=== PATIENT | male | born 1990 | race Hispanic/Latino ===

== ENCOUNTER 2018-11-11 23:03 | Emergency (ER) | payer SELFPAY ==
[2018-11-12 02:29] LABS: Absolute Lymphocytes (CBC) 1.1 K/uL (0.7-4.9); Absolute Monocytes 0.6 K/uL (0.1-1.3); Absolute Neutrophil 6.8 K/uL (1.8-8.0); Basophils % 0.3 % (0-1.3); Eosinophils % 0.3 % (0-4.4); Hematocrit 45.5 % (39.6-49.0); Lymphocytes % 12.7 % (15.3-44.8); MPV 9.3 fL (7.6-11.3); Monocytes % 6.6 % (3.3-12.3); RBC Red Blood Cell Count 5.37 M/uL (4.33-5.43)
[2018-11-12 02:43] LABS: ALT/SGPT 43 U/L (12-78); AST/SGOT 22 U/L (15-37); Albumin 4.1 g/dL (3.4-5.0); Alkaline Phosphatase 76 U/L (45-117); BUN Blood Urea Nitrogen 11 mg/dL (7-18); Bicarbonate 26 mmol/L (21-32); Bilirubin Direct 0.1 mg/dL (0-0.2); Bilirubin Total 0.5 mg/dL (0.2-1.0); Glucose Level 111 mg/dL (74-106); Lipase 61 U/L (73-393); Potassium 3.3 mmol/L (3.5-5.1); Protein, Total 7.7 g/dL (6.4-8.2); Sodium Level 139 mmol/L (136-145)
[2018-11-12] MEDS ORDERED: FAMOTIDINE 20 MG/2 ML VIAL IV ONE (02:57)
[2018-11-12] MEDS ORDERED: ONDANSETRON 4 MG/2 ML VIAL ONE (02:57)
[2018-11-12] MEDS ORDERED: KETOROLAC 30 MG/ML INJ ONE (02:57)
--- NOTE | 2018-11-12 03:55 | EDPHYS ---
Physician Documentation [facility] Name: Mathieu Zhou Age: 28 yrs Sex: Male : 1990 Arrival Date: 11/11/2018 Time: 23:07 Bed 19 Private MD: ED Physician Car Owens HPI: 11/12 07:08 This 28 yrs old Male presents to ER via Ambulatory with complaints of Fever, wa Vomiting/Diarrhea. 07:08 The patient reports fever, not measured (subjective). Onset: The symptoms/episode wa began/occurred yesterday. Modifying factors: there are no obvious modifying factors. Associated signs and symptoms: Pertinent positives: abdominal pain, decreased appetite, diarrhea, nausea, vomiting, Pertinent negatives: cough, pulling at ears, runny nose, shortness of breath. Severity of symptoms: At their worst the symptoms were moderate in the emergency department the symptoms are unchanged. The patient has not experienced similar symptoms in the past. The patient has not recently seen a physician. girlfriend has similar symptoms. Historical: - Allergies: 11/11 23:27 No Known Allergies; fc - Home Meds: 23:27 None [Active]; fc - PMHx: 23:27 None; fc - PSHx: 23:27 Left lower leg surg; fc - Immunization history:: Last tetanus immunization: unknown. - Social history:: Smoking status: Patient uses tobacco products, smokes one-half pack cigarettes per day, Patient uses alcohol, weekends only. Patient/guardian denies using street drugs. - Ebola Screening: : Patient negative for fever greater than or equal to 101.5 degrees Fahrenheit, and additional compatible Ebola Virus Disease symptoms Patient denies exposure to infectious person Patient denies travel to an Ebola-affected area in the 21 days before illness onset. - Family history:: not pertinent. - Hospitalizations: : No recent hospitalization is reported. ROS: 11/12 07:13 Eyes: Negative for injury, pain, redness, and discharge, ENT: Negative for injury, wa pain, and discharge, Neck: Negative for injury, pain, and swelling, Cardiovascular: Negative for chest pain, palpitations, and edema, Respiratory: Negative for shortness of breath, cough, wheezing, and pleuritic chest pain, Back: Negative for injury and pain, MS/Extremity: Negative for injury and deformity, Skin: Negative for injury, rash, and discoloration, Neuro: Negative for headache, weakness, numbness, tingling, and seizure, Psych: Negative for depression, anxiety, suicide ideation, homicidal ideation, and hallucinations. Constitutional: Positive for fever. Abdomen/GI: Positive for abdominal pain, nausea, vomiting, diarrhea. Exam: 07:13 Head/Face: Normocephalic, atraumatic. Eyes: Pupils equal round and reactive to light, wa extra-ocular motions intact. Lids and lashes normal. Conjunctiva and sclera are non-icteric and not injected. Cornea within normal limits. Periorbital areas with no swelling, redness, or edema. ENT: Nares patent. No nasal discharge, no septal abnormalities noted. Tympanic membranes are normal and external auditory canals are clear. Oropharynx with no redness, swelling, or masses, exudates, or evidence of obstruction, uvula midline. Mucous membranes moist. Neck: Trachea midline, no thyromegaly or masses palpated, and no cervical lymphadenopathy. Supple, full range of motion without nuchal rigidity, or vertebral point tenderness. No Meningismus. Chest/axilla: Normal chest wall appearance and motion. Nontender with no deformity. No lesions are appreciated. Cardiovascular: Regular rate and rhythm with a normal S1 and S2. No gallops, murmurs, or rubs. Normal PMI, no JVD. No pulse deficits. Respiratory: Lungs have equal breath sounds bilaterally, clear to auscultation and percussion. No rales, rhonchi or wheezes noted. No increased work of breathing, no retractions or nasal flaring. Back: No spinal tenderness. No costovertebral tenderness. Full range of motion. Skin: Warm, dry with normal turgor. Normal color with no rashes, no lesions, and no evidence of cellulitis. MS/ Extremity: Pulses equal, no cyanosis. Neurovascular intact. Full, normal range of motion. Neuro: Awake and alert, GCS 15, oriented to person, place, time, and situation. Cranial nerves II-XII grossly intact. Motor strength 5/5 in all extremities. Sensory grossly intact. Cerebellar exam normal. Normal gait. Psych: Awake, alert, with orientation to person, place and time. Behavior, mood, and affect are within normal limits. 07:13 Constitutional: The patient appears in no acute distress, alert, febrile. 07:13 Abdomen/GI: Inspection: abdomen appears normal, Bowel sounds: normal, in all quadrants, Palpation: soft, in all quadrants, mild abdominal tenderness, in the diffusely. Vital Signs: 11/11 23:27 BP 139 / 90; Pulse 101; Resp 18; Temp 99.6; Pulse Ox 96% ; Weight 127.01 kg; Height 5 fc ft. 8 in. (172.72 cm); Pain 0/10; 11/12 00:45 BP 141 / 79; Pulse 93; Resp 19; Temp 99.2(TE); Pulse Ox 100% on R/A; Pain 0/10; ed1 01:33 BP 138 / 79; Pulse 91; Resp 19; Temp 99.0(TE); Pulse Ox 100% on R/A; Pain 0/10; ed1 02:55 BP 138 / 74; Pulse 83; Resp 19; Temp 99.1(O); Pulse Ox 100% on R/A; Pain 0/10; ed1 04:38 BP 126 / 81; Pulse 79; Resp 19; Temp 98.3(O); Pulse Ox 99% on R/A; Pain 0/10; ed1 11/11 23:27 Body Mass Index 42.57 (127.01 kg, 172.72 cm) fc MDM: 00:10 Patient medically screened. tx 07:21 Differential diagnosis: viral Infection, bacterial infection, UTI. Data reviewed: vital tx signs, nurses notes. 07:21 Test interpretation: by ED physician or midlevel provider: maryann Kam. Response to tx treatment: the patient's symptoms have markedly improved after treatment. 07:24 ED course: improved. . tx 11/12 01:59 Order name: Basic Metabolic Panel; Complete Time: 03:13 tx 11/12 01:59 Order name: CBC with Diff; Complete Time: 03:13 tx 11/12 01:59 Order name: Hepatic Function; Complete Time: 03:14 tx 11/12 01:59 Order name: Lipase; Complete Time: 03:14 tx 11/12 01:59 Order name: IV Saline Lock; Complete Time: 02:15 tx 11/12 01:59 Order name: Labs collected and sent; Complete Time: 02:15 tx Administered Medications: 02:54 Drug: Zofran 4 mg Route: IVP; Site: right antecubital; ed1 03:54 Follow up: Response: No adverse reaction; Nausea is decreased ed1 02:54 Drug: Pepcid 20 mg Route: IVP; Site: right antecubital; ed1 03:54 Follow up: Response: No adverse reaction ed1 02:54 Drug: TORadol 30 mg Route: IVP; Site: right antecubital; ed1 03:55 Follow up: Response: No adverse reaction; Nausea is decreased ed1 03:54 Drug: Potassium Effervescent Tablet 50 mEq Route: PO; ed1 04:38 Follow up: Response: No adverse reaction ed1 03:55 Drug: NS 0.9% 1000 ml Route: IV; Rate: 1000 ml; Site: right antecubital; ed1 04:37 Follow up: Response: No adverse reaction; IV Status: Completed infusion; IV Intake: ed1 1000ml Disposition: 11/12/18 03:53 Discharged to Home. Impression: Diarrhea, vomiting, abdominal pain. - Condition is Stable. - Discharge Instructions: Abdominal Pain, Adult, [id number], Diarrhea, Adult, [id number], Vomiting, Adult. - Prescriptions for Zofran 4 mg Oral Tablet - take 1 tablet by ORAL route every 12 hours As needed; 20 tablet. Pepcid 20 mg Oral Tablet - take 1 tablet by ORAL route once daily for 10 days; 10 tablet. - Medication Reconciliation Form, Thank You Letter, Antibiotic Education, Prescription Opioid Use form. - Follow up: Car Dominguez MD; When: 2 - 3 days; Reason: Recheck today's complaints. - Problem is new. - Symptoms have improved. Signatures: Dispatcher [employer] EDMS Francie Pedersen RN RN Emeli Bullard RN RN ed1 Car Owens MD MD wa Corrections: (The following items were deleted from the chart) 04:39 03:53 11/12/2018 03:53 Discharged to Home. Impression: Diarrhea; vomiting; abdominal ed1 pain. Condition is Stable. Forms are Medication Reconciliation Form, Thank You Letter, Antibiotic Education, Prescription Opioid Use. Follow up: Car Dominguez; When: 2 - 3 days; Reason: Recheck today's complaints. Problem is new. Symptoms have improved. wa
--- NOTE | 2018-11-12 03:55 | ER ---
Nurse's Notes [facility] Name: Mathieu Zhou Age: 28 yrs Sex: Male : 1990 Arrival Date: 11/11/2018 Time: 23:07 Bed 19 Private MD: Diagnosis: Diarrhea;vomiting;abdominal pain Presentation: 11/11 23:24 Presenting complaint: Patient states: this am he started to have fever, diarrhea and fc vomiting. Has has over 10 episodes of diarrhea and vomiting. Also occ. abd cramping but no constant pain. Transition of care: patient was not received from another setting of care. Onset of symptoms was November 11, 2018 at 06:30. Risk Assessment: Do you want to hurt yourself or someone else? Patient reports no desire to harm self or others. Initial Sepsis Screen: Does the patient meet any 2 criteria? HR > 90 bpm. Yes Does the patient have a suspected source of infection? No. Patient's initial sepsis screen is negative. Care prior to arrival: Medication(s) given: Pepto and amoxicillin. 23:24 Method Of Arrival: Ambulatory 23:24 Acuity: ELOINA 3 Triage Assessment: 23:27 General: Appears comfortable, obese, Behavior is calm, cooperative, appropriate for age. Pain: Complains of pain in abdomen Pain currently is 0 out of 10 on a pain scale. at worst was 6 out of 10 on a pain scale. Quality of pain is described as crampy, Pain began today Is continuous. EENT: No deficits noted. Neuro: Level of Consciousness is awake, alert, obeys commands, Oriented to person, place, time, situation, Appropriate for age. Cardiovascular: No deficits noted. Respiratory: No deficits noted. GI: Abdomen is round Bowel sounds present X 4 quads. Abd is soft and non tender Reports cramping, diarrhea, nausea, vomiting. : No deficits noted. Derm: Skin is pink, warm \T\ dry. Musculoskeletal: Circulation, motion, and sensation intact. Capillary refill < 3 seconds, Range of motion: intact in all extremities. Historical: - Allergies: 23:27 No Known Allergies; fc - Home Meds: 23:27 None [Active]; fc - PMHx: 23:27 None; fc - PSHx: 23:27 Left lower leg surg; fc - Immunization history:: Last tetanus immunization: unknown. - Social history:: Smoking status: Patient uses tobacco products, smokes one-half pack cigarettes per day, Patient uses alcohol, weekends only. Patient/guardian denies using street drugs. - Ebola Screening: : Patient negative for fever greater than or equal to 101.5 degrees Fahrenheit, and additional compatible Ebola Virus Disease symptoms Patient denies exposure to infectious person Patient denies travel to an Ebola-affected area in the 21 days before illness onset. - Family history:: not pertinent. - Hospitalizations: : No recent hospitalization is reported. Screenin:45 Abuse screen: Denies threats or abuse. Denies injuries from another. Nutritional ed1 screening: No deficits noted. Tuberculosis screening: No symptoms or risk factors identified. Fall Risk None identified. Assessment: 23:45 General: Appears in no apparent distress. Behavior is calm, cooperative. Pain: ed1 Complains of pain in abdomen Pain at worst was 6 out of 10 on a pain scale. Quality of pain is described as crampy, Is intermittent, episodic. Neuro: Level of Consciousness is awake, alert, obeys commands, Oriented to person, place, time, situation. Cardiovascular: Denies chest pain, Heart tones S1 S2 present. Respiratory: Airway is patent Respiratory effort is even, unlabored, Respiratory pattern is regular, symmetrical, Breath sounds are clear bilaterally. GI: Abdomen is non-distended, Bowel sounds present X 4 quads. Abd is soft and non tender X 4 quads. Reports cramping, diarrhea, nausea, vomiting. : No signs and/or symptoms were reported regarding the genitourinary system. EENT: Oral mucosa is moist. Derm: Skin is intact, is healthy with good turgor, Skin is dry, Skin is normal, Skin temperature is warm. Musculoskeletal: Circulation, motion, and sensation intact. Range of motion: intact in all extremities. 11/12 00:45 Reassessment: Patient appears in no apparent distress at this time. No changes from ed1 previously documented assessment. Patient and/or family updated on plan of care and expected duration. Pain level reassessed. Patient is alert, oriented x 3, equal unlabored respirations, skin warm/dry/pink. Patient states symptoms have not improved. 01:33 Reassessment: Patient appears in no apparent distress at this time. No changes from ed1 previously documented assessment. Patient and/or family updated on plan of care and expected duration. Pain level reassessed. Patient is alert, oriented x 3, equal unlabored respirations, skin warm/dry/pink. Patient states symptoms have not improved. 02:55 Reassessment: Patient appears in no apparent distress at this time. No changes from ed1 previously documented assessment. Patient and/or family updated on plan of care and expected duration. Pain level reassessed. Patient is alert, oriented x 3, equal unlabored respirations, skin warm/dry/pink. Patient states symptoms have not improved. 04:38 Reassessment: Patient appears in no apparent distress at this time. Patient and/or ed1 family updated on plan of care and expected duration. Pain level reassessed. Patient is alert, oriented x 3, equal unlabored respirations, skin warm/dry/pink. Patient denies pain at this time. Patient states feeling better. Patient states symptoms have improved. Vital Signs: 11/11 23:27 BP 139 / 90; Pulse 101; Resp 18; Temp 99.6; Pulse Ox 96% ; Weight 127.01 kg; Height 5 fc ft. 8 in. (172.72 cm); Pain 0/10; 11/12 00:45 BP 141 / 79; Pulse 93; Resp 19; Temp 99.2(TE); Pulse Ox 100% on R/A; Pain 0/10; ed1 01:33 BP 138 / 79; Pulse 91; Resp 19; Temp 99.0(TE); Pulse Ox 100% on R/A; Pain 0/10; ed1 02:55 BP 138 / 74; Pulse 83; Resp 19; Temp 99.1(O); Pulse Ox 100% on R/A; Pain 0/10; ed1 04:38 BP 126 / 81; Pulse 79; Resp 19; Temp 98.3(O); Pulse Ox 99% on R/A; Pain 0/10; ed1 11/11 23:27 Body Mass Index 42.57 (127.01 kg, 172.72 cm) ED Course: 11/11 23:07 Patient arrived in ED. am2 23:26 Triage completed. 23:27 Arm band placed on Patient placed in an exam room, on a stretcher. 23:45 Awaiting ED provider evaluation. ed1 23:45 Patient has correct armband on for positive identification. Bed in low position. Call ed1 light in reach. Pt refuses to wear gown. 23:46 Emeli Bullard, ZEESHAN is Primary Nurse. ed1 05 00:10 Car Owens MD is Attending Physician. 00:45 Resting quietly. Awaiting ED provider evaluation. ed1 01:33 Resting quietly. Awaiting ED provider evaluation. ed1 02:14 Initial lab(s) drawn, by ED staff, sent to lab. Inserted saline lock: 20 gauge in right ed1 antecubital area, using aseptic technique. Blood collected. 03:53 Car Dominguez MD is Referral Physician. 04:38 No provider procedures requiring assistance completed. IV discontinued, intact, ed1 bleeding controlled, No redness/swelling at site. Pressure dressing applied. Administered Medications: 02:54 Drug: Zofran 4 mg Route: IVP; Site: right antecubital; ed1 03:54 Follow up: Response: No adverse reaction; Nausea is decreased ed1 02:54 Drug: Pepcid 20 mg Route: IVP; Site: right antecubital; ed1 03:54 Follow up: Response: No adverse reaction ed1 02:54 Drug: TORadol 30 mg Route: IVP; Site: right antecubital; ed1 03:55 Follow up: Response: No adverse reaction; Nausea is decreased ed1 03:54 Drug: Potassium Effervescent Tablet 50 mEq Route: PO; ed1 04:38 Follow up: Response: No adverse reaction ed1 03:55 Drug: NS 0.9% 1000 ml Route: IV; Rate: 1000 ml; Site: right antecubital; ed1 04:37 Follow up: Response: No adverse reaction; IV Status: Completed infusion; IV Intake: ed1 1000ml Intake: 04:37 IV: 1000ml; Total: 1000ml. ed1 Outcome: 03:53 Discharge ordered by . 04:38 Discharged to home ambulatory, with significant other. ed1 04:38 Condition: good 04:38 Discharge instructions given to patient, Instructed on discharge instructions, follow up and referral plans. medication usage, Demonstrated understanding of instructions, follow-up care, medications, Prescriptions given X 2. 04:39 Patient left the ED. ed1 Signatures: Francie Pedersen RN RN Emeli Bullard RN RN ed1 Yenny Bar am2 Car Owens MD MD wa
[2018-11-12] MEDS ORDERED: NA CHLORIDE 0.9% 1,000 ML ONE (04:04)
[2018-11-12] MEDS ORDERED: POTASSIUM 25 MEQ EFFERV TAB ONE (04:04)
[2018-11-12 11:12] VITALS: BP 126/81; TEMP 98.3; O2SAT 99
== END 2018-11-12 04:39 | disposition home or self-care (01) ==
LOC: ER 23:03
DX: R10.9 Unspecified abdominal pain (principal); R19.7 Diarrhea, unspecified; R11.10 Vomiting, unspecified; F17.210 Nicotine dependence, cigarettes, uncomplicated
CPT/HCPCS: 36415; 80048; 80076; 83690; 85025; 96361; 96374; 96375; 99284; J2405; J7030

== ENCOUNTER 2020-05-09 10:24 | Emergency (ER) | payer SELFPAY ==
--- NOTE | 2020-05-09 12:48 | ER ---
Nurse's Notes [facility] Name: Mathieu Zhou Age: 29 yrs Sex: Male : 1990 Arrival Date: 05/09/2020 Time: 10:25 Bed 13 Private MD: Diagnosis: Acute bronchitis Presentation: 05/09 10:43 Chief complaint: Patient states: Productive cough x 3 days. Nasal congestion, headache, ca1 sore throat and fever yesterday. Coronavirus screen: Client denies travel out of the [place] in the last 14 days. congestion, cough unrelated to allergies, runny nose, loss of taste or smell, Client presents with at least one sign or symptom that may indicate coronavirus-19. Standard/surgical mask placed on the client. Provider contacted for isolation considerations. The client denies any previous COVID testing. Ebola Screen: Patient negative for fever greater than or equal to 101.5 degrees Fahrenheit, and additional compatible Ebola Virus Disease symptoms Patient denies exposure to infectious person. Patient denies travel to an Ebola-affected area in the 21 days before illness onset. No symptoms or risks identified at this time. Initial Sepsis Screen: Does the patient meet any 2 criteria? No. Patient's initial sepsis screen is negative. Does the patient have a suspected source of infection? No. Patient's initial sepsis screen is negative. Risk Assessment: Do you want to hurt yourself or someone else? Patient reports no desire to harm self or others. Onset of symptoms was May 09, 2020. 10:43 Method Of Arrival: Ambulatory ca1 10:43 Acuity: ELOINA 3 ca1 Historical: - Allergies: 10:45 No Known Allergies; ca1 - Home Meds: 10:45 None [Active]; ca1 - PMHx: 10:45 None; ca1 - PSHx: 10:46 Left lower leg surg; ca1 - Immunization history:: Adult Immunizations up to date, Flu vaccine is not up to date. - Social history:: Smoking status: Patient reports the use of cigarette tobacco products, smokes one-half pack cigarettes per day. Screenin:36 Abuse screen: Denies threats or abuse. Nutritional screening: No deficits noted. tw2 Tuberculosis screening: No symptoms or risk factors identified. Fall Risk None identified. Assessment: 12:12 General: Appears in no apparent distress. obese, well groomed, Behavior is calm, tw2 cooperative, appropriate for age. Pain: Complains of pain in uvula, left aspect of posterior pharynx and right aspect of posterior pharynx. Neuro: Level of Consciousness is awake, alert, obeys commands, Oriented to person, place, time, situation. Cardiovascular: Heart tones S1 S2 Patient's skin is warm and dry. Respiratory: Reports cough that is non-productive, dry, Airway is patent Respiratory effort is even, unlabored, Respiratory pattern is regular, symmetrical, Breath sounds are clear bilaterally. GI: Abdomen is round non-distended, Bowel sounds present X 4 quads. : No signs and/or symptoms were reported regarding the genitourinary system. EENT: Reports nasal congestion nasal discharge. Musculoskeletal: No signs and/or symptoms reported regarding the musculoskeletal system. Range of motion: intact in all extremities. 12:36 Reassessment: xray at bedside at this time. tw2 12:41 Reassessment: Patient appears in no apparent distress at this time. No changes from tw2 previously documented assessment. Patient and/or family updated on plan of care and expected duration. Pain level reassessed. Patient is alert, oriented x 3, equal unlabored respirations, skin warm/dry/pink. 13:02 Reassessment: Patient appears in no apparent distress at this time. No changes from tw2 previously documented assessment. Patient and/or family updated on plan of care and expected duration. Pain level reassessed. Patient is alert, oriented x 3, equal unlabored respirations, skin warm/dry/pink. Vital Signs: 10:43 BP 132 / 95; Pulse 61; Resp 16 S; Temp 97(TE); Pulse Ox 98% on R/A; Weight 127.01 kg ca1 (R); Height 5 ft. 8 in. (172.72 cm) (R); 12:40 BP 111 / 62; Pulse 88; Resp 17; Pulse Ox 100% on R/A; tw2 10:43 Body Mass Index 42.57 (127.01 kg, 172.72 cm) ca1 ED Course: 10:25 Patient arrived in ED. ag5 10:36 Joc[facility] Gallegos F[facility]-C [facility]. snw 10:36 Pieter Beckford MD is Attending Physician. snw 10:45 Triage completed. ca1 10:46 Arm band placed on right wrist. ca1 10:50 Flu and/or RSV swab sent to lab. Strep swab sent to lab. ca1 12:12 Bed in low position. Call light in reach. equipment monitor phototypesetting on. Pulse ox on. NIBP on. tw2 12:36 Halima Kc, RN is Primary Nurse. tw2 12:55 Chest Single View XRAY In Process Unspecified. EDMS 13:01 No provider procedures requiring assistance completed. Patient did not have IV access tw2 during this emergency room visit. Administered Medications: 12:55 Drug: Zithromax 500 mg Route: PO; tw2 13:01 Follow up: Response: No adverse reaction tw2 12:55 Drug: predniSONE 40 mg Route: PO; tw2 13:01 Follow up: Response: No adverse reaction tw2 12:55 Drug: Pepcid 20 mg Route: PO; tw2 13: Follow up: Response: No adverse reaction tw2 Outcome: 12:48 Discharge ordered by MD. snw 13:01 Discharged to home ambulatory, with significant other. tw2 13:01 Condition: stable 13:01 Discharge instructions given to patient, significant other, Instructed on discharge instructions, follow up and referral plans. medication usage, Demonstrated understanding of instructions, follow-up care, medications, Prescriptions given X 5 13:02 Patient left the ED. tw2 Addendum: 05/11/2020 12:31 Addendum: COVID-19 Result: Negative result given to RN to notify pt. Contacted by: Carmen Solorzano. Notified pt of negative COVID 19 swab results. Pt advised that even with a negative test result they should remain in isolation until symptom free for 3 days without medication. Pt also advised to return to the ED for worsening symptoms. Signatures: Dispatcher [employer] EDNC Loretta Solorzano, RN Jocelin Colón, [employer]-C [employer]-Csnw Halima Kc RN RN tw2 Carin Turner RN RN ca1 Rainer Limon 5
--- NOTE | 2020-05-09 12:49 | EDPHYS ---
Physician Documentation [facility] Name: Mathieu Zhou Age: 29 yrs Sex: Male : 1990 Arrival Date: 05/09/2020 Time: 10:25 Bed 13 Private MD: SASHA Physician Pieter Beckford HPI: 05/09 15:47 This 29 yrs old Male presents to ER via Ambulatory with complaints of Cough. snw 15:47 The patient or guardian reports cough, described as moderate, difficulty breathing, flu snw symptoms, low-grade fever, myalgias. Onset: The symptoms/episode began/occurred suddenly, 3 day(s) ago, and became persistent. Severity of symptoms: At their worst the symptoms were moderate. Associated signs and symptoms: The patient has no apparent associated signs or symptoms. The patient has not experienced similar symptoms in the past. The patient has not recently seen a physician. Historical: - Allergies: 10:45 No Known Allergies; ca1 - Home Meds: 10:45 None [Active]; ca1 - PMHx: 10:45 None; ca1 - PSHx: 10:46 Left lower leg surg; ca1 - Immunization history:: Adult Immunizations up to date, Flu vaccine is not up to date. - Social history:: Smoking status: Patient reports the use of cigarette tobacco products, smokes one-half pack cigarettes per day. ROS: 15:46 Constitutional: Negative for fever, chills, and weight loss, Eyes: Negative for injury, snw pain, redness, and discharge, ENT: Negative for injury, pain, and discharge, + congestion Neck: Negative for injury, pain, and swelling, Cardiovascular: Negative for chest pain, palpitations, and edema. 15:46 Abdomen/GI: Negative for abdominal pain, nausea, vomiting, diarrhea, and constipation, Back: Negative for injury and pain, : Negative for injury, bleeding, discharge, and swelling, MS/Extremity: Negative for injury and deformity, Skin: Negative for injury, rash, and discoloration, Neuro: Negative for headache, weakness, numbness, tingling, and seizure, Psych: Negative for depression, anxiety, suicide ideation, homicidal ideation, and hallucinations. 15:46 Respiratory: Positive for cough, shortness of breath, coughing up yellow, thick, phlegm. Exam: 15:45 Constitutional: This is a well developed, well nourished patient who is awake, alert, snw and in no acute distress. Head/Face: Normocephalic, atraumatic. Eyes: Pupils equal round and reactive to light, extra-ocular motions intact. Lids and lashes normal. Conjunctiva and sclera are non-icteric and not injected. Cornea within normal limits. Periorbital areas with no swelling, redness, or edema. ENT: Nares patent. No nasal discharge, no septal abnormalities noted. Tympanic membranes are normal and external auditory canals are clear. Oropharynx with no redness, swelling, or masses, exudates, or evidence of obstruction, uvula midline. Mucous membranes moist. Neck: Trachea midline, no thyromegaly or masses palpated, and no cervical lymphadenopathy. Supple, full range of motion without nuchal rigidity, or vertebral point tenderness. No Meningismus. Chest/axilla: Normal chest wall appearance and motion. Nontender with no deformity. No lesions are appreciated. Cardiovascular: Regular rate and rhythm with a normal S1 and S2. No gallops, murmurs, or rubs. Normal PMI, no JVD. No pulse deficits. Abdomen/GI: Soft, non-tender, with normal bowel sounds. No distension or tympany. No guarding or rebound. No evidence of tenderness throughout. Back: No spinal tenderness. No costovertebral tenderness. Full range of motion. Skin: Warm, dry with normal turgor. Normal color with no rashes, no lesions, and no evidence of cellulitis. MS/ Extremity: Pulses equal, no cyanosis. Neurovascular intact. Full, normal range of motion. Neuro: Awake and alert, GCS 15, oriented to person, place, time, and situation. Cranial nerves II-XII grossly intact. Motor strength 5/5 in all extremities. Sensory grossly intact. Cerebellar exam normal. Normal gait. Psych: Awake, alert, with orientation to person, place and time. Behavior, mood, and affect are within normal limits. 15:45 Respiratory: the patient does not display signs of respiratory distress, Respirations: normal, Breath sounds: bronchial sounds, that are moderate, are scattered. Vital Signs: 10:43 BP 132 / 95; Pulse 61; Resp 16 S; Temp 97(TE); Pulse Ox 98% on R/A; Weight 127.01 kg ca1 (R); Height 5 ft. 8 in. (172.72 cm) (R); 12:40 BP 111 / 62; Pulse 88; Resp 17; Pulse Ox 100% on R/A; tw2 10:43 Body Mass Index 42.57 (127.01 kg, 172.72 cm) ca1 MDM: 12:15 Patient medically screened. [facility] 15:45 Data reviewed: vital signs, nurses notes. Data interpreted: Pulse oximetry: on room air snw is 100 %. Interpretation: normal. Counseling: I had a detailed discussion with the patient and/or guardian regarding: the historical points, exam findings, and any diagnostic results supporting the discharge/admit diagnosis, lab results, the need for outpatient follow up, to return to the emergency department if symptoms worsen or persist or if there are any questions or concerns that arise at home. Special discussion: Based on the history and exam findings, there is no indication for further emergent testing or inpatient evaluation. I discussed with the patient/guardian the need to see the primary care provider for further evaluation of the symptoms. 05/09 10:48 Order name: Flu; Complete Time: 11:57 [facility] 05/09 10:48 Order name: Strep; Complete Time: 11:48 [facility] 05/09 10:48 Order name: COVID-19 [facility] 05/09 10:48 Order name: Chest Single View XRAY [facility] 05/09 11:45 Order name: Throat Culture EDMS Administered Medications: 12:55 Drug: Zithromax 500 mg Route: PO; tw2 13:01 Follow up: Response: No adverse reaction tw2 12:55 Drug: predniSONE 40 mg Route: PO; tw2 13:01 Follow up: Response: No adverse reaction tw2 12:55 Drug: Pepcid 20 mg Route: PO; tw2 13:01 Follow up: Response: No adverse reaction tw2 Disposition: 05/10 06:51 Co-signature as Attending Physician, Pieter Beckford MD I agree with the assessment and [facility] plan of care. Disposition: 05/09/20 12:48 Discharged to Home. Impression: Acute bronchitis. - Condition is Stable. - Discharge Instructions: Acute Bronchitis, Adult, Fever, Adult, Cough, Adult, Rehydration, Adult. - Prescriptions for Zyrtec 10 mg Oral Tablet - take 1 tablet by ORAL route once daily As needed; 20 tablet. Prednisone 20 mg Oral Tablet - take 2 tablet by ORAL route once daily for 5 days; 10 tablet. Pepcid 20 mg Oral Tablet - take 1 tablet by ORAL route once daily for 10 days; 10 tablet. Zithromax 500 mg Oral Tablet - take 1 tablet by ORAL route once daily for 5 days; 5 tablet. Albuterol Sulfate 90 mcg/actuation - inhale 1-2 puff by INHALATION route every 4-6 hours; 1 Inhaler. - Medication Reconciliation Form, Thank You Letter, Antibiotic Education, Prescription Opioid Use, Work release form form. - Follow up: Emergency Department; When: As needed; Reason: Worsening of condition. Follow up: Private Physician; When: 2 - 3 days; Reason: Recheck today's complaints, Continuance of care, Re-evaluation by your physician. Signatures: Dispatcher [employer] EDPieter Vasquez MD MD cha Waters, Shelly, SHIFT SUPERVISOR FILM PROCESSING-C SHIFT SUPERVISOR FILM PROCESSING-Csnw Halima Kc RN RN tw2 Carin Turner RN RN ca1 Corrections: (The following items were deleted from the chart) 05/09 13:02 12:48 05/09/2020 12:48 Discharged to Home. Impression: Acute bronchitis. Condition is tw2 Stable. Forms are Work release form, Medication Reconciliation Form, Thank You Letter, Antibiotic Education, Prescription Opioid Use. Follow up: Emergency Department; When: As needed; Reason: Worsening of condition. Follow up: Private Physician; When: 2 - 3 days; Reason: Recheck today's complaints, Continuance of care, Re-evaluation by your physician. snw
[2020-05-09] MEDS ORDERED: predniSONE 20 MG TAB ONE (13:04)
[2020-05-09] MEDS ORDERED: AZITHROMYCIN 250 MG TAB ONE (13:04)
[2020-05-09] MEDS ORDERED: FAMOTIDINE 20 MG TAB ONE (13:04)
--- NOTE | 2020-05-09 13:12 | RAD REPORT ---
EXAM DESCRIPTION: Nestor Single View05/09/2020 12:55 pm CLINICAL HISTORY: cough COMPARISON: 2016 FINDINGS: The lungs appear clear of acute infiltrate. The heart is normal size IMPRESSION: No acute abnormalities displayed
[2020-05-09 14:19] VITALS: TEMP 97
[2020-05-09 14:21] VITALS: BP 111/62; O2SAT 100
== END 2020-05-09 13:02 | disposition home or self-care (01) ==
LOC: ER 10:24
DX: J20.9 Acute bronchitis, unspecified (principal); Z20.828 Contact with and (suspected) exposure to other viral communicable diseases
CPT/HCPCS: 71045; 87070; 87081; 87804; 99284; J7512; U0002

== ENCOUNTER 2020-07-26 09:46 | Emergency (ER) | payer SELFPAY ==
[2011-10-09 23:29] VITALS: BP 124/59
--- NOTE | 2020-07-26 10:58 | EDPHYS ---
Physician Documentation [facility] Name: Mathieu Zhou Age: 30 yrs Sex: Male : 1990 Arrival Date: 07/26/2020 Time: 09:47 Bed 23 Private MD: ED Physician Moises Gupta HPI: 07/26 10:51 This 30 yrs old Male presents to ER via Ambulatory with complaints of Insect cp Bite. 10:51 The patient or guardian complains of pain, that is acute. cp 10:51 The complaints affect the dorsal aspect of right forearm. Context: resulted from cp possible insect bite. Onset: The symptoms/episode began/occurred 2 day(s) ago. 10:51 Treatment prior to arrival includes: no previous treatment. Associated signs and cp symptoms: Pertinent negatives: fever, drainage. Historical: - Allergies: 10:51 No Known Allergies; iw - Home Meds: 10:51 None [Active]; iw - PMHx: 10:51 None; iw ROS: 10:54 Constitutional: Negative for body aches, chills, fever. cp 10:54 Skin: Positive for erythema, swelling, of the right forearm. 10:54 All other systems are negative. Exam: 10:55 Constitutional: The patient appears in no acute distress, alert, awake, non-toxic, well cp developed, well nourished, obese. 10:55 Skin: cellulitis, that is minimal, on the right forearm, mild erythema, mild swelling. Vital Signs: 10:49 BP 146 / 107; Pulse 66; Resp 16; Pulse Ox 98% on R/A; iw MDM: 10:51 Patient medically screened. cp 10:56 Data reviewed: vital signs, nurses notes, and as a result, I will discharge patient. cp 10:56 Counseling: I had a detailed discussion with the patient and/or guardian regarding: the cp historical points, exam findings, and any diagnostic results supporting the discharge/admit diagnosis, to return to the emergency department if symptoms worsen or persist or if there are any questions or concerns that arise at home. Administered Medications: No medications were administered Disposition: 11:15 Chart complete. cp 18:24 Co-signature as Attending Physician, Moises Gupta MD. ma2 Disposition: 07/26/20 10:57 Discharged to Home. Impression: Staphylococcal infection, unspecified site - right forearm. - Condition is Stable. - Discharge Instructions: Staphylococcal Infection. - Prescriptions for Bactroban 2 % Topical Ointment - Apply to affected area 1 application by TOPICAL route every 12 hours; 30 gram. Bactrim DS 800- 160 mg Oral Tablet - take 1 tablet by ORAL route every 12 hours for 10 days; 20 tablet. - Medication Reconciliation Form, Thank You Letter, Antibiotic Education, Prescription Opioid Use form. - Follow up: Private Physician; When: 2 - 3 days; Reason: Worsening of condition. - Problem is new. - Symptoms are unchanged. Signatures: Laura Dunlap RN RN iw Pieter Martinez PA PA cp Moises Gupta MD MD ma2 Corrections: (The following items were deleted from the chart) 11:12 10:57 07/26/2020 10:57 Discharged to Home. Impression: Staphylococcal infection, iw unspecified site - right forearm. Condition is Stable. Forms are Medication Reconciliation Form, Thank You Letter, Antibiotic Education, Prescription Opioid Use. Follow up: Private Physician; When: 2 - 3 days; Reason: Worsening of condition. Problem is new. Symptoms are unchanged. cp
--- NOTE | 2020-07-26 10:58 | ER ---
Nurse's Notes [facility] Name: Mathieu Zhou Age: 30 yrs Sex: Male : 1990 Arrival Date: 07/26/2020 Time: 09:47 Bed 23 Private MD: Diagnosis: Staphylococcal infection, unspecified site-right forearm Presentation: 07/26 10:49 Chief complaint: Patient states: insect bite to right forearm X 2 days. Coronavirus iw screen: At this time, the client does not indicate any symptoms associated with coronavirus-19. Ebola Screen: Patient negative for fever greater than or equal to 101.5 degrees Fahrenheit, and additional compatible Ebola Virus Disease symptoms Patient denies exposure to infectious person. Patient denies travel to an Ebola-affected area in the 21 days before illness onset. No symptoms or risks identified at this time. Initial Sepsis Screen: Does the patient meet any 2 criteria? No. Patient's initial sepsis screen is negative. Does the patient have a suspected source of infection? No. Patient's initial sepsis screen is negative. Risk Assessment: Do you want to hurt yourself or someone else? Patient reports no desire to harm self or others. Onset of symptoms was July 19, 2020. 10:49 Method Of Arrival: Ambulatory iw 10:49 Acuity: ELOINA 4 iw Historical: - Allergies: 10:51 No Known Allergies; iw - Home Meds: 10:51 None [Active]; iw - PMHx: 10:51 None; iw Vital Signs: 10:49 BP 146 / 107; Pulse 66; Resp 16; Pulse Ox 98% on R/A; iw ED Course: 09:47 Patient arrived in ED. ag5 10:44 Laura Dunlap RN is Primary Nurse. iw 10:47 Pieter Martinez PA is PHCP. cp 10:47 Moises Gupta MD is Attending Physician. cp 10:50 Triage completed. iw 10:50 Arm band placed on. iw Administered Medications: No medications were administered Outcome: 10:57 Discharge ordered by . cp 11:12 Patient left the ED. iw Signatures: Laura Dunlap RN RN iw Pieter Martinez PA PA Rainer Klein ag5
== END 2020-07-26 11:12 | disposition home or self-care (01) ==
LOC: ER 09:46
DX: S50.861A Insect bite (nonvenomous) of right forearm, initial encounter (principal); L08.9 Local infection of the skin and subcutaneous tissue, unspecified; B95.8 Unspecified staphylococcus as the cause of diseases classified elsewhere; W57.XXXA Bitten or stung by nonvenomous insect and other nonvenomous arthropods, initial encounter; Y93.89 Activity, other specified; Y92.9 Unspecified place or not applicable
CPT/HCPCS: 99281

== ENCOUNTER 2020-07-29 16:11 | Emergency (ER) | payer SELFPAY ==
[2020-07-29] MEDS ORDERED: LIDOCAINE 1% MPF 30 ML VIAL ONE (16:44)
--- NOTE | 2020-07-29 16:54 | ER ---
Nurse's Notes [facility] Name: Mathieu Zhou Age: 30 yrs Sex: Male : 1990 Arrival Date: 07/29/2020 Time: 16:14 Bed 6 Private MD: Diagnosis: Cutaneous abscess of right upper limb Presentation: 07/29 16:20 Chief complaint: Patient states: he was seen here a few days ago for this abscess and sv sent home with antibiotics. Today he was at work and bumped his right arm where the abscess was at and "it busted open.". Coronavirus screen: Client denies travel out of the [place] in the last 14 days. At this time, the client does not indicate any symptoms associated with coronavirus-19. Ebola Screen: No symptoms or risks identified at this time. Initial Sepsis Screen: Does the patient meet any 2 criteria? No. Patient's initial sepsis screen is negative. Does the patient have a suspected source of infection? Yes: Skin breakdown/wound. Risk Assessment: Do you want to hurt yourself or someone else? Patient reports no desire to harm self or others. Onset of symptoms was July 25, 2020. 16:20 Method Of Arrival: Ambulatory sv 16:20 Acuity: ELOINA 4 sv Triage Assessment: 16:22 General: Appears in no apparent distress. comfortable, well groomed, well developed, sv Behavior is calm, cooperative, appropriate for age. Pain: Complains of pain in right arm. Neuro: Level of Consciousness is awake, alert, obeys commands, Oriented to person, place, time, situation, Moves all extremities. Full function Gait is steady. Respiratory: Airway is patent Respiratory effort is even, unlabored, Respiratory pattern is regular, symmetrical. Derm: Skin is pink, warm \\T\\ dry. Abscess located on palmar aspect of right forearm is quarter sized, is red, is raised, was lanced by patient prior to arrival. Musculoskeletal: Range of motion: intact in all extremities. Historical: - Allergies: 16:22 No Known Allergies; sv - Social history:: Smoking status: . Screenin:17 Abuse screen: Denies threats or abuse. Nutritional screening: No deficits noted. On. hb Tuberculosis screening: No symptoms or risk factors identified. Fall Risk Total Hitchcock Fall Scale indicates No Risk (0-24 pts). Assessment: 16:20 General: Appears in no apparent distress. Behavior is calm, cooperative. Pain: Pain hb currently is 4 out of 10 on a pain scale. Neuro: Level of Consciousness is awake, alert, obeys commands, Oriented to person, place, time, situation. Cardiovascular: Patient's skin is warm and dry. Respiratory: Respiratory effort is even, unlabored, Respiratory pattern is regular, symmetrical. GI: No signs and/or symptoms were reported involving the gastrointestinal system. : No signs and/or symptoms were reported regarding the genitourinary system. EENT: No signs and/or symptoms were reported regarding the EENT system. Derm: Skin is pink, warm \\T\\ dry. Abscess located on palmar aspect of right forearm is half dollar sized, has purulent drainage, is hot to touch, is red, is raised. Musculoskeletal: No signs and/or symptoms reported regarding the musculoskeletal system. 17:09 Reassessment: Patient appears in no apparent distress at this time. Patient and/or sv family updated on plan of care and expected duration. Pain level reassessed. Patient is alert, oriented x 3, equal unlabored respirations, skin warm/dry/pink. Patient states symptoms have improved. Vital Signs: 16:20 BP 153 / 115; Pulse 90; Resp 16; Temp 97.7(TE); Pulse Ox 97% on R/A; Weight 127.01 kg; sv Height 5 ft. 8 in. (172.72 cm); 16:29 BP 138 / 96; sv 16:20 Body Mass Index 42.57 (127.01 kg, 172.72 cm) sv ED Course: 16:14 Patient arrived in ED. mr 16:15 [facility] Kan [facility]C [facility] kb 16:15 Moises Gupta MD is Attending Physician. kb 16:16 Arm band placed on. hb 16:19 Lisa Lara, ZEESHAN is Primary Nurse. sv 16:21 Triage completed. sv 16:22 Patient has correct armband on for positive identification. Bed in low position. Call sv light in reach. Pulse ox on. NIBP on. Door closed. Head of bed elevated. 16:23 Nurse Practitioner and/or Physician Outside Machinist Supervisor to see patient. sv 16:40 Assist provider with I \\T\\ D: of an abscess on right forearm Set up I\\T\\D tray. Performed sv by Natasha IRVING Wound packed. iodoform gauze, Dressing with 4X4s, tape Patient tolerated well. 17:09 Patient did not have IV access during this emergency room visit. hb 17:09 Wound care: to abrasion, located on palmar aspect of right forearm was dressed with hb 4X4s, Kerlix, Patient tolerated well. Administered Medications: No medications were administered Outcome: 16:53 Discharge ordered by MD. chaudhary 17:09 Discharged to home ambulatory. hb 17:09 Condition: stable 17:09 Discharge instructions given to patient, Instructed on discharge instructions, follow up and referral plans. medication usage, Demonstrated understanding of instructions, follow-up care, medications. 17:10 Patient left the ED. hb Signatures: Natasha Kan, MARIA FERNANDA DACOSTA-Lisa Rothman RN RN Iva Camejo Heather, RN RN Corrections: (The following items were deleted from the chart) 17:50 17:09 No provider procedures requiring assistance completed. hb sv
--- NOTE | 2020-07-29 16:54 | EDPHYS ---
Physician Documentation [facility] Name: Mathieu Zhou Age: 30 yrs Sex: Male : 1990 Arrival Date: 07/29/2020 Time: 16:14 Bed 6 Private MD: ED Physician Moises Gupta HPI: 07/29 16:39 This 30 yrs old Male presents to ER via Ambulatory with complaints of Abscess. kb 16:39 The patient presents with an abscess of the palmar aspect of right forearm. kb Description: draining, erythematous, hot, swollen. Onset: The symptoms/episode began/occurred last week. Possible cause(s): unknown. Associated signs and symptoms: Pertinent positives: drainage, erythema, swelling. Modifying factors: the symptoms are alleviated by nothing, the symptoms are aggravated by pressure, touching. Severity of symptoms: At their worst the symptoms were moderate, in the emergency department the symptoms are unchanged. The patient has not experienced similar symptoms in the past. The patient has been recently seen at the [facility] Emergency Department. Pt reports he came in for an abscess a few days ago and was put on antibiotics. States he hit his arm today and it caused it to rupture. . Historical: - Allergies: 16:22 No Known Allergies; sv - Social history:: Smoking status: . ROS: 16:34 Constitutional: Negative for fever, chills, and weight loss, Cardiovascular: Negative kb for chest pain, palpitations, and edema, Respiratory: Negative for shortness of breath, cough, wheezing, and pleuritic chest pain, Abdomen/GI: Negative for abdominal pain, nausea, vomiting, diarrhea, and constipation, MS/Extremity: Negative for injury and deformity, Neuro: Negative for headache, weakness, numbness, tingling, and seizure. 16:34 Skin: Positive for abscess, of the palmar aspect of right forearm. Exam: 16:34 Constitutional: This is a well developed, well nourished patient who is awake, alert, kb and in no acute distress. Head/Face: Normocephalic, atraumatic. Chest/axilla: Normal chest wall appearance and motion. Nontender with no deformity. No lesions are appreciated. Cardiovascular: Regular rate and rhythm with a normal S1 and S2. No gallops, murmurs, or rubs. Normal PMI, no JVD. No pulse deficits. Respiratory: Lungs have equal breath sounds bilaterally, clear to auscultation and percussion. No rales, rhonchi or wheezes noted. No increased work of breathing, no retractions or nasal flaring. Abdomen/GI: Soft, non-tender, with normal bowel sounds. No distension or tympany. No guarding or rebound. No evidence of tenderness throughout. MS/ Extremity: Pulses equal, no cyanosis. Neurovascular intact. Full, normal range of motion. Neuro: Awake and alert, GCS 15, oriented to person, place, time, and situation. Cranial nerves II-XII grossly intact. Motor strength 5/5 in all extremities. Sensory grossly intact. Cerebellar exam normal. Normal gait. 16:34 Skin: abscess, that is moderate sized, of the palmar aspect of right forearm, with drainage, with induration, with surrounding cellulitis, that is very mild. Vital Signs: 16:20 BP 153 / 115; Pulse 90; Resp 16; Temp 97.7(TE); Pulse Ox 97% on R/A; Weight 127.01 kg; sv Height 5 ft. 8 in. (172.72 cm); 16:29 BP 138 / 96; sv 16:20 Body Mass Index 42.57 (127.01 kg, 172.72 cm) sv Procedures: 16:52 I \T\ D: Incision and drainage was performed for an abscess of the right palmar aspect of kb right forearm Prepped with Betadine, Anesthetized with 1 ml's 1% Lidocaine. Incised with #11 blade. Drained small amount purulent fluid. Packed with iodoform gauze, Dressing: sterile 4x4 gauze, the patient tolerated the procedure well. MDM: 16:16 Patient medically screened. kb 16:33 Data reviewed: vital signs, nurses notes. Data interpreted: Pulse oximetry: on room air kb is 97 %. Interpretation: normal. Counseling: I had a detailed discussion with the patient and/or guardian regarding: the historical points, exam findings, and any diagnostic results supporting the discharge/admit diagnosis, the need for outpatient follow up, a family practitioner, to return to the emergency department if symptoms worsen or persist or if there are any questions or concerns that arise at home. 07/29 16:21 Order name: I\T\D Setup; Complete Time: 16:29 kb Administered Medications: No medications were administered Disposition: 07/29/20 16:53 Discharged to Home. Impression: Cutaneous abscess of right upper limb. - Condition is Stable. - Discharge Instructions: Skin Abscess, [id number], Incision and Drainage, Care After. - Medication Reconciliation Form, Thank You Letter, Antibiotic Education, Prescription Opioid Use form. - Follow up: Emergency Department; When: As needed; Reason: Worsening of condition. Follow up: Private Physician; When: 2 - 3 days; Reason: Recheck today's complaints, Continuance of care, Re-evaluation by your physician. - Notes: Continue Bactrim as prescribed Addendum: 07/31/2020 18:22 Co-signature as Attending Physician, Moises Gupta MD. m a2 Signatures: Natasha Kan, OLESYA-C OLESYA-Lisa Rothman, RN RN Tana Fontana RN RN Moises Gupta MD MD ma2 Corrections: (The following items were deleted from the chart) 07/29 17:10 16:53 07/29/2020 16:53 Discharged to Home. Impression: Cutaneous abscess of right upper hb limb. Condition is Stable. Forms are Medication Reconciliation Form, Thank You Letter, Antibiotic Education, Prescription Opioid Use. Follow up: Emergency Department; When: As needed; Reason: Worsening of condition. Follow up: Private Physician; When: 2 - 3 days; Reason: Recheck today's complaints, Continuance of care, Re-evaluation by your physician. kb
[2020-07-29 17:28] VITALS: TEMP 97.7; O2SAT 97
[2020-07-29 17:29] VITALS: BP 138/96
== END 2020-07-29 17:10 | disposition home or self-care (01) ==
LOC: ER 16:11
PROC: 0H9DXZZ Drainage of Right Lower Arm Skin, External Approach (ICD-10-PCS; principal; 2020-07-29)
DX: L02.413 Cutaneous abscess of right upper limb (principal)
CPT/HCPCS: 99284